=== PATIENT | female | born 1990 | race Caucasian/White ===

== ENCOUNTER 2016-03-03 23:35 | Inpatient (IN) ==
[2016-03-04] MEDS ORDERED: ZOFRAN IV PRN (00:10)
[2016-03-04] MEDS ORDERED: NS 1,000 ML IV SCH (00:15)
[2016-03-04] MEDS ORDERED: TORADOL IV PRN (00:18)
[2016-03-04] MEDS ORDERED: ATIVAN IV ONE (00:19)
[2016-03-04 01:02] LABS: MANUAL DIFF NEEDED? NO
[2016-03-04 01:05] LABS: BASO% 0.3 % (0.0-0.8); EOS# 0.51 X1000 (0.0-0.7); EOS% 4.8 % (0.0-10.0); HEMOGLOBIN 10.3 g/dL (12.0-16.0); IMM GRAN% 0.9 % (0.0-0.5); LYMPH% 23.6 % (20.5-51.1); MCH 30.7 PG (27-31); MCHC 34.3 g/dL (33-37); MCV 89.3 FL (81-99); MONO# 0.91 X1000 (0.11-0.59); MONO% 8.6 % (1.7-9.3); MPV 10.8 FL (7.4-10.4); NEUT% 61.8 % (42.2-75.2); PLT 249 X1000 (130-400); RBC 3.36 XMIL (4.2-5.4)
[2016-03-04] MEDS: LOVENOX SUBQ SCH ×2 (01:12→23:24)
[2016-03-04] MEDS: CLINDAMYCIN 600 MG/NS 50 ML IV SCH ×4 (01:13→23:29)
[2016-03-04 01:18] LABS: AGAP 15; ALBUMIN 2.4 g/dL (3.5-5.0); ALKALINE PHOSPHATASE 87 U/L (32-104); BUN 6 mg/dL (8-22); CALCIUM 8.1 mg/dL (8.8-10.2); CHLORIDE 102 mmol/L (98-107); COSMO 271; GOT 15 U/L (10-30); GPT 19 U/L (10-36); POTASSIUM 3.5 mmol/L (3.5-5.1); SODIUM 137 mmol/L (136-145); TCO2 20 mmol/L (25-35); TOTAL BILIRUBIN 0.19 mg/dL (0.20-1.00); TOTAL PROTEIN 5.5 g/dL (6.3-8.3)
[2016-03-04] MEDS ORDERED: NS 500 ML IV ONE (01:19)
[2016-03-04] MEDS: CUBICIN (FOR INPATIENT USE) 500 MG in NS 100 ML IV SCH (02:24)
[2016-03-04] MEDS: NS 1,000 ML IV SCH ×3 (03:31→16:21)
[2016-03-04 03:40] LABS: UR AMPHETAMINES QUAL NONE DETECTED (NONE DETECT); UR BARBITUATES QUAL NONE DETECTED (NONE DETECT); UR BENZODIAZEPIN QUAL NONE DETECTED (NONE DETECT); UR CANNABINOIDS QUAL PRESUMPTIVE POSITIVE (NONE DETECT); UR COCAINE QUAL NONE DETECTED (NONE DETECT); UR METHADONE QUAL NONE DETECTED (NONE DETECT); UR OPIATES QUAL PRESUMPTIVE POSITIVE (NONE DETECT); UR OXYCODONE QUAL NONE DETECTED (NONE DETECT); UR PCP QUAL NONE DETECTED (NONE DETECT)
[2016-03-04] MEDS: PRILOSEC PO SCH (06:14)
[2016-03-04] MEDS: MORPHINE IV PRN ×4 (09:41→23:15)
[2016-03-04] MEDS ORDERED: NEOSPORIN G.U. IRRIGANT ONE (11:35)
[2016-03-04] MEDS: DILAUDID ONE ×2 (12:00→12:07)
[2016-03-04] MEDS ORDERED: FENTANYL ONE (12:12)
[2016-03-04] MEDS ORDERED: DIPRIVAN 1% ONE (12:13)
[2016-03-04] MEDS ORDERED: TORADOL ONE (12:13)
[2016-03-04] MEDS ORDERED: NS 1,000 ML ONE (12:18)
--- NOTE | 2016-03-04 16:13 | OPERATIVE NOTE ---
PROCEDURE DATE: 03/04/2016 DATE OF SURGERY: 03/04/2016. PREOPERATIVE DIAGNOSIS: Left forearm abscess. POSTOPERATIVE DIAGNOSIS: Left forearm abscess. PROCEDURE: Left forearm incision and debridement. SURGEON: Dr. Rivas Coleman. ANESTHESIA: General. IV FLUIDS: Lactated Ringer's. ESTIMATED BLOOD LOSS: 25 mL. COMPLICATIONS: None. DRAINS: One quarter-inch Milan. CULTURES: Obtained with deep culture swabs into the forearm anterior compartment x3. BRIEF HISTORY: Patient with a history of left forearm infection that occurred after a needlestick was performed of the left forearm in sterile conditions. The patient developed redness, erythema, swelling and pain. She was ultimately admitted in [facility] where she stayed for 5 days for IV antibiotics. An MRI was done yesterday which showed a 7.8 x 1.8 cm abscess over the flexor attachment region in the antecubital fossa. She was transferred to [facility] for definitive treatment. Patient was seen in the hospital. She was counseled extensively about the risks and benefits, and options and indications of left forearm incisions and drainage procedure. Further, she was counseled about the magnitude of infection, the concerns for loss of motion including possibly even amputation if this was untreated. Patient understands that there are multiple risks including other orthopedic, other anesthesia, and other medical risks associated with surgery and wishes to proceed. PROCEDURE IN DETAIL: The patient was taken to the operating room, where a time-out sight verification procedure was performed. The left forearm was identified as the site of surgery, prepped and draped in the sterile usual fashion. Over the volar aspect of the arm, the medial epicondyle was palpated. The ulnar groove was palpated and identified. Just radial to these anatomical structures, the site of fluctuance was identified. A cruz was made over the area of fluctuance. A small incision was made over this site. The fascia was encountered. The fascia was opened bluntly with Metzenbaum scissors, and a large purulent abscess was evacuated. Next, 1000 mL bulb syringe was used with irrigant to irrigate the compartment. Before irrigation was initiated, three swab cultures were obtained to this anterior compartment region. This was irrigated thoroughly. At the end of the irrigation process, all of the irrigant was clear. The abscess was felt to be fully evacuated. It was digitally palpated with my hand, and no further deep abscesses were appreciated. Next, the skin was closed using 2-0 Maxon in inverted subcutaneous fashion x3 stitches to take tension off of this. Then, 3-0 nylon stitch was placed using mattress stitches, closing the skin. After all stitches were placed, a small opening was left distal in the incision, and a quarter-inch Milan drain was placed using a Hemostat deep to the tissues. The drain was not sewn into place. Sterile dressings applied with Xeroform, 4 x 4s, ABD, and John wrap. The hand was well perfused post John placement. The patient was taken to recovery in stable condition. Sponge and needle counts correct x2. The patient tolerated procedure well. No complications.
--- NOTE | 2016-03-04 16:27 | PROGRESS NOTE ---
DATE: 03/04/2016 SUBJECTIVE: Patient reports feeling some pain around the left elbow. OBJECTIVE: Vital Signs: Temperature 98.1 degrees, heart rate 80, respiratory rate 20, blood pressure 139/64, O2 saturation 95% on room air. General Examination: This is a young female lying in bed in no acute distress. HEENT: Head is normocephalic, atraumatic. Anicteric sclerae and pale conjunctivae. Mucous membranes moist. Neck: Supple. No JVD noted. No carotid bruits. No lymphadenopathy. Cardiovascular: S1, S2 heard. No murmurs, gallops or rubs. Regular rate and rhythm. Respiratory: Clear bilaterally to auscultation. No work of breathing or using accessory muscles. Abdomen: Soft, nontender to palpation. Bowel sounds present. No organomegaly. Extremities: Left elbow covered by dressing and dry and clean. Neurological: Patient is alert and oriented x3. Able to move 4 extremities. Cranial nerves 2-12 grossly normal. LABORATORY DATA: White cell count 10.58, hemoglobin 10.3, hematocrit 32.0, platelets 249,000, BMP unremarkable. ASSESSMENT AND PLAN: 1. Status post incision and drainage of upper extremity left forearm. That procedure was performed by orthopedics help appreciated. At this time we are going to continue with the same antibiotic coverage. White cell count is back to normal. 2. History of drug abuse. We are going to check hepatitis panel and HIV as well.
--- NOTE | 2016-03-04 16:36 | ECHO REPORT ---
ORDER DATE: 03/04/2016 INDICATION: IV drug abuse. FINDINGS: 1. Right atrium is mildly enlarged at 4.3 cm. 2. Mild tricuspid regurgitation. RV systolic pressure of 30. 3. Normal RV size and systolic function. 4. Mild pulmonic insufficiency. 5. Mild left atrial enlargement at 4.5 cm. 6. There is no mitral valve prolapse. Mild mitral regurgitation is identified. 7. Normal LV size, end-diastolic dimension of 5.7 cm. Normal wall thicknesses with a posterior and interventricular septal wall thickness of 0.9 cm each. Normal LV systolic function. Calculated EF of 57%. 8. Aortic valve opens well and appears trileaflet. There is no evidence of stenosis or insufficiency identified. 9. The aorta appears normal in visualized segments. 10. No pericardial effusion identified. 11. There is no clear evidence of endocarditis based on this study. If clinical suspicion is high would recommend transesophageal echocardiogram for further evaluation.
[2016-03-04] MEDS: TORADOL IV SCH (20:28)
[2016-03-05] MEDS: CUBICIN (FOR INPATIENT USE) 500 MG in NS 100 ML IV SCH (00:55)
[2016-03-05] MEDS: NS 1,000 ML IV SCH ×3 (01:30→17:30)
[2016-03-05] MEDS ORDERED: MELATONIN PO PRN (01:36)
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
[2016-03-05] MEDS: MORPHINE IV PRN ×7 (02:38→23:45)
[2016-03-05] MEDS: TORADOL IV SCH (04:02)
[2016-03-05] MEDS: PRILOSEC PO SCH (06:26)
[2016-03-05 07:21] LABS: IRON SATURATION 50 %; TIBC 181 ug/dL; TOTAL IRON 90 ug/dL (49-151); UNBOUND IRON 91 ug/dL (112-346)
[2016-03-05 08:50] LABS: HIV ANTIBODY SCREEN SEE COMMENTS (())
[2016-03-05] MEDS: CLINDAMYCIN 600 MG/NS 50 ML IV SCH (08:54)
--- NOTE | 2016-03-05 15:37 | PROGRESS NOTE ---
DATE: 03/05/2016 SUBJECTIVE: The patient reported still feeling some pain around the left elbow. She denies any fever or chills. OBJECTIVE: Vital Signs: Temperature 97.8 degrees, heart rate 67, respiratory rate 21, blood pressure 118/62, O2 saturation 98% on room air. General: This is a young, female lying in bed in no acute distress. HEENT: Head is normocephalic, atraumatic. Anicteric sclerae and pale conjunctivae. Mucous membranes moist. Neck: Supple. No JVD noted. No carotid bruits. No lymphadenopathy. No thyromegaly. Cardiovascular: S1 and S2 heard. No murmurs, gallops, or rubs. Regular rate and rhythm. Respiratory: Clear bilaterally to auscultation. No work of breathing or using accessory muscles. Abdomen: Soft, nontender to palpation. Bowel sounds present. No organomegaly. Extremities: Left elbow covered with dressing. Swollen with dressing dry and clean. Neurological: Patient alert and oriented x3. Able to move all 4 extremities. Cranial nerves 2-12 grossly normal. LABORATORY DATA: There are no labs from today. ASSESSMENT AND PLAN: Status post incision and drainage of upper extremity, left forearm abscess. That procedure was performed by Dr. Coleman of Orthopedics; help appreciated. At this time, we are going to continue with the same treatment. Currently, this patient is on daptomycin, and on we are waiting basically for the results of the culture of left forearm abscess. So far because of his history of IV drug abuse, the HIV returned negative. The hepatitis panel is pending. We will check them tomorrow. Hopefully, they will be available at that time.
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
[2016-03-05] MEDS ORDERED: DULCOLAX PR ONE (22:14)
[2016-03-05] MEDS: BENADRYL PO PRN (22:35)
[2016-03-06] MEDS: LOVENOX SUBQ SCH (00:41)
[2016-03-06] MEDS: CUBICIN (FOR INPATIENT USE) 500 MG in NS 100 ML IV SCH (00:41)
[2016-03-06] MEDS: MORPHINE IV PRN ×3 (03:13→09:31)
[2016-03-06] MEDS ORDERED: VANCOMYCIN IV PER PHARMACY MISC SCH (05:30)
[2016-03-06] MEDS: NS 1,000 ML IV SCH ×2 (06:14→20:07)
[2016-03-06] MEDS: PRILOSEC PO SCH (06:14)
[2016-03-06 06:25] LABS: MANUAL DIFF NEEDED? NO
[2016-03-06 06:36] LABS: BASO% 0.3 % (0.0-0.8); EOS# 0.24 X1000 (0.0-0.7); EOS% 2.3 % (0.0-10.0); HEMATOCRIT 29.1 % (37.0-47.0); HEMOGLOBIN 9.8 g/dL (12.0-16.0); IMM GRAN# 0.27 X1000 (0.0-0.04); IMM GRAN% 2.6 % (0.0-0.5); LYMPH# 4.01 X1000 (1.2-3.4); LYMPH% 38.7 % (20.5-51.1); MCH 30.5 PG (27-31); MCHC 33.7 g/dL (33-37); MCV 90.7 FL (81-99); MONO# 0.71 X1000 (0.11-0.59); MONO% 6.8 % (1.7-9.3); MPV 10.5 FL (7.4-10.4); NEUT% 49.3 % (42.2-75.2); PLT 290 X1000 (130-400); RBC 3.21 XMIL (4.2-5.4)
[2016-03-06 06:44] LABS: AGAP 11; BUN 8 mg/dL (8-22); CHLORIDE 106 mmol/L (98-107); COSMO 279; POTASSIUM 3.7 mmol/L (3.5-5.1); SODIUM 141 mmol/L (136-145); TCO2 24 mmol/L (25-35)
[2016-03-06] MEDS ORDERED: VANCOMYCIN 2 GM in NS 500 ML IV ONE (08:00)
[2016-03-06] MEDS ORDERED: XYLOCAINE-MPF 2% ONE (08:40)
[2016-03-06] MEDS ORDERED: LR 1,000 ML ONE (08:40)
[2016-03-06] MEDS ORDERED: ANESTHESIA PB SET 88 IN 5742 ONE (08:40)
[2016-03-06] MEDS ORDERED: ZOFRAN ONE (08:40)
[2016-03-06] MEDS ORDERED: DECADRON ONE (08:40)
[2016-03-06] MEDS: MIRALAX PO SCH (09:31)
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
[2016-03-06] MEDS ORDERED: NORCO-5 PO PRN (10:22)
[2016-03-06] MEDS ORDERED: FIORICET PO ONE (10:23)
[2016-03-06 10:54] LABS: HEPATITIS PROFILE ACUTE SEE COMMENTS (())
--- NOTE | 2016-03-06 14:30 | PROGRESS NOTE ---
DATE: 03/06/2016 PRESENT ILLNESS: The patient is status post incision and drainage of a left arm abscess. A culture from the abscess is growing gram positive cocci which have yet to be identified. MEDICATION: The patient is receiving IV vancomycin. PHYSICAL EXAMINATION: Vital Signs: Temperature is 98.3 degrees, pulse 70, respirations 17, blood pressure 121/70. General: The patient appears to be in good health. She is in no acute distress. Lungs: Clear to auscultation. Cardiovascular: Regular heart rate. Abdomen: Soft and nontender. Extremities: The left arm was less swollen. It was not erythematous. It still was a little bit larger than the right arm. LAB AND X-RAY: There is no new x-ray. The CBC for today shows a white count of 10,370, hemoglobin 9.8, and platelet count 290,000. Creatinine 0.5. GFR is greater than 60. The culture from the arm, as mentioned above, is growing gram positive cocci. ASSESSMENT AND PLAN: Patient is status post drainage of a large left arm abscess. For now, I am going to continue with vancomycin pending final culture results. Once we have the final culture results, I believe the patient can be sent home on oral antibiotics. The patient's comorbidities include that she abuses drugs, including intravenous drugs.
[2016-03-06] MEDS: TORADOL IV SCH ×2 (15:32→20:11)
[2016-03-06] MEDS: OFIRMEV 1000 MG/ISOTONIC SOLN 100 ML IV SCH ×2 (15:32→20:11)
--- NOTE | 2016-03-06 16:15 | PROGRESS NOTE ---
DATE: 03/06/2016 SUBJECTIVE: Patient is still feeling pain and swelling around the left elbow. She denies any fever or chills. OBJECTIVE: Vital Signs: Temperature 98.3 degrees, heart rate 70, respiratory rate 17, blood pressure 121/70, O2 saturation 99% on room air. General Examination: This is a young female lying in bed, in no acute distress. HEENT: Head is normocephalic, atraumatic. Anicteric sclerae. Pale conjunctivae. Mucous membranes moist. Neck: Supple. No JVD noted. No carotid bruits. No lymphadenopathy. No thyromegaly. Cardiovascular: S1, S2 heard. No murmurs, gallops, or rubs. Regular rate and rhythm. Respiratory: Clear bilaterally to auscultation. No work of breathing or using accessory muscles. Abdomen: Soft, nontender to palpation. Bowel sounds present. No organomegaly. Extremities: Left lower extremity is swollen. We have removed the dressing and it shows that arm still swelling with a Maggie drain in place. Neurological: Patient alert and oriented x3. Able to move 4 extremities. Cranial nerves 2-12 grossly normal. LABORATORY DATA: White cell count 10.37, hemoglobin 9.8, hematocrit 29.1, platelets 105,000. BMP unremarkable. ASSESSMENT AND PLAN: Status post incision and drainage of left forearm abscess. The patient is improving with white cell count back to normal and no fever. At this time, we will continue with the same treatment. Currently, she is on vancomycin as per Dr. Josemanuel Alvarez from infectious disease. Culture is still pending to see if she has methicillin-resistant Staphylococcus aureus infection or not. Regarding human immunodeficiency virus and hepatitis panel, all returned negative. At this point, we will continue with same treatment.
[2016-03-06] MEDS: NS IV SCH (20:19)
[2016-03-06] MEDS: VANCOMYCIN IV SCH (20:19)
[2016-03-06] MEDS: BENADRYL PO PRN (20:20)
[2016-03-07] MEDS: TORADOL IV SCH ×2 (02:38→08:22)
[2016-03-07] MEDS: LOVENOX SUBQ SCH (02:38)
[2016-03-07] MEDS: OFIRMEV 1000 MG/ISOTONIC SOLN 100 ML IV SCH ×3 (02:38→13:37)
[2016-03-07] MEDS: PRILOSEC PO SCH (06:24)
[2016-03-07 07:08] LABS: MANUAL DIFF NEEDED? NO
[2016-03-07 07:21] LABS: BASO% 0.4 % (0.0-0.8); EOS# 0.39 X1000 (0.0-0.7); EOS% 4.4 % (0.0-10.0); HEMATOCRIT 31.8 % (37.0-47.0); HEMOGLOBIN 10.8 g/dL (12.0-16.0); IMM GRAN# 0.24 X1000 (0.0-0.04); IMM GRAN% 2.7 % (0.0-0.5); LYMPH% 32.4 % (20.5-51.1); MCH 30.3 PG (27-31); MCV 89.1 FL (81-99); MONO# 0.58 X1000 (0.11-0.59); MONO% 6.5 % (1.7-9.3); MPV 10.3 FL (7.4-10.4); NEUT% 53.6 % (42.2-75.2); PLT 357 X1000 (130-400); RBC 3.57 XMIL (4.2-5.4)
[2016-03-07 07:35] LABS: AGAP 11; BUN 4 mg/dL (8-22); CALCIUM 8.2 mg/dL (8.8-10.2); CHLORIDE 101 mmol/L (98-107); COSMO 273; POTASSIUM 3.5 mmol/L (3.5-5.1); SODIUM 138 mmol/L (136-145); TCO2 26 mmol/L (25-35)
[2016-03-07] MEDS: MIRALAX PO SCH (08:22)
[2016-03-07] MEDS: NS IV SCH (08:22)
[2016-03-07] MEDS: VANCOMYCIN IV SCH (08:22)
[2016-03-07] MEDS: NS 1,000 ML IV SCH (09:33)
[2016-03-07 13:49] VITALS: BP 135/80
--- NOTE | 2016-03-07 14:29 | PROGRESS NOTE ---
DATE: 03/07/2016 The patient's abscess from her arm grew a group A strep. In vitro it was susceptible to cephalosporin antibiotics, vancomycin, erythromycin, Levaquin, tetracycline, and Septra. The patient had a very severe penicillin allergy manifested by swelling. Therefore our plan is to let the patient go today on Septra DS 1 every 12 hours for 2 weeks. I have written for appointment for the patient to see me in the office in [address] [facility]
[2016-03-07] MEDS ORDERED: MOTRIN PO PRN (15:00)
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
[2016-03-07] MEDS ORDERED: SEPTRA DS PO SCH (21:00)
== END 2016-03-07 14:49 | disposition home or self-care (01) | DRG 581 ==
LOC: 3N 23:35
PROVIDERS: ATTEND Internal Medicine
PROC: 0J9F0ZZ Drainage of Left Upper Arm Subcutaneous Tissue and Fascia, Open Approach (ICD-10-PCS; principal; 2016-03-04 11:22)
DX: L02.414 Cutaneous abscess of left upper limb (principal); I10 Essential (primary) hypertension; L03.114 Cellulitis of left upper limb; J44.9 Chronic obstructive pulmonary disease, unspecified; F90.9 Attention-deficit hyperactivity disorder, unspecified type; F19.10 Other psychoactive substance abuse, uncomplicated; F41.9 Anxiety disorder, unspecified; F31.9 Bipolar disorder, unspecified; B95.0 Streptococcus, group A, as the cause of diseases classified elsewhere; Z87.891 Personal history of nicotine dependence; Z82.3 Family history of stroke; Z82.49 Family history of ischemic heart disease and other diseases of the circulatory system; Z80.9 Family history of malignant neoplasm, unspecified
CPT/HCPCS: 80048; 80053; 80074; 81025; 82550; 82607; 82728; 82746; 83540; 83550; 83605; 83735; 84443; 85025; 86140; 86701; 87040; 87070; 87075; 87077; 87186; 87205; 93306; G0480; J0131; J0878; J1100; J1170; J1650; J1885; J2060; J2270; J2405; J3010; J3370; J7030; J7040; J7120; S0077